=== PATIENT | female | born 1960 ===

== ENCOUNTER 2023-06-17 18:38 | Emergency (ER) | payer BC ==
[2023-06-17] MEDS: Ondansetron 4 MG/2 ML SDV IVPUSH ONE (18:56)
[2023-06-17] MEDS ORDERED: Sodium Chloride 0.9% 10 ML Syringe FLUSH PRN (19:08)
[2023-06-17] MEDS: Ketorolac 30 MG/ML SDV IVPUSH ONE (19:10)
[2023-06-17 19:14] LABS: BASOPHILS ABSOLUTE AUTO 0.03 K/uL (0.02-0.10); BASOPHILS PERCENT AUTO 0.4 % (0.0-0.5); EOSINOPHILS ABSOLUTE AUTO 0.08 K/uL (0.04-0.40); HEMATOCRIT 39.8 % (37.0-47.0); HEMOGLOBIN 13.3 g/dL (11.5-16.5); LYMPHOCYTES ABSOLUTE AUTO 4.15 K/uL (1.50-4.00); LYMPHOCYTES PERCENT AUTO 49.4 % (20.0-40.0); MEAN CORPUSCULAR HEMOGLOBIN 33.3 pg (27.0-32.0); MEAN CORPUSCULAR HGB CONC 33.4 g/dL (31.0-35.0); MEAN CORPUSCULAR VOLUME 100 fL (76-96); MEAN PLATELET VOLUME 9.2 fL (6.0-10.0); MONOCYTES ABSOLUTE AUTO 0.57 K/uL (0.20-0.80); MONOCYTES PERCENT AUTO 6.8 % (3.0-10.0); NEUTROPHILS ABSOLUTE AUTO 3.57 K/uL (2.00-7.50); NEUTROPHILS PERCENT AUTO 42.4 % (45.0-70.0); PLATELET COUNT,PLT 251 K/uL (150-500); RED CELL DISTRIBUTION WIDTH 12.8 % (11.0-16.0); WHITE BLOOD CELL COUNT,WBC 8.4 K/uL (4.0-11.0)
[2023-06-17 19:23] LABS: A/G RATIO 1.2 (0.8-2.0); ALBUMIN 4.5 g/dL (3.4-5.0); ANION GAP 17.9 mmol/L (5.0-15.0); BILIRUBIN TOTAL 0.4 mg/dL (0.0-1.0); BUN/CREATININE RATIO 15.9 (6-25); CALCIUM 8.9 mg/dL (8.5-10.1); CARBON DIOXIDE,CO2 24.3 mmol/L (21.0-32.0); CREATININE 0.63 mg/dL (0.55-1.02); EST CRCL DRUG DOSING (CG) 87.79 mL/min; POTASSIUM,K 3.2 mmol/L (3.5-5.1); PROTEIN TOTAL,TP 8.1 g/dL (6.4-8.2)
[2023-06-17] MEDS: Potassium Chloride 20 MEQ Tab.ER PO ONE (20:08)
[2023-06-17 20:16] VITALS: BP 116/69; PULSE 77
== END 2023-06-17 20:27 | disposition home or self-care (01) ==
LOC: LB.ED 18:38
DX: S43.014A Anterior dislocation of right humerus, initial encounter (principal); F10.929 Alcohol use, unspecified with intoxication, unspecified; E87.6 Hypokalemia; Y90.7 Blood alcohol level of 200-239 mg/100 ml; Z88.1 Allergy status to other antibiotic agents; Z79.899 Other long term (current) drug therapy; W01.0XXA Fall on same level from slipping, tripping and stumbling without subsequent striking against object, initial encounter
CPT/HCPCS: 23650; 23655; 36415; 73030-RT; 80053; 80307; 85025; 96374; 99283; 99284-25; A0425; A0429; A9270-GY; J1885; J2405